=== PATIENT | female | born 1950 | race Caucasian/White ===

== ENCOUNTER 2019-12-24 10:09 | Emergency (ER) | payer MEDICARE, OTHER ==
[2019-12-24 10:40] LABS: Bilirubin Negative (Negative); Blood, Urine Trace (Negative); Clarity Clear (Clear); Glucose, Urine (Dipstick) Negative (Negative); Ketone, Urine Negative (Negative); Leukocyte Negative (Negative); Nitrite Negative (Negative); Protein, Urine (Dipstick) Negative (Neg-Trace); Urobilinogen 0.2 mg/dL (Less than 2); pH, Urine 7.5 (5.0-9.0)
[2019-12-24 10:46] LABS: RBC/HPF 0-3 HPF (0-3)
[2019-12-24 10:47] LABS: Bacteria/HPF Rare-Few HPF (None Seen); Squamous Epithelial 0-3 HPF (0-3); WBC/HPF 0-3 HPF (0-3)
[2019-12-24] MEDS ORDERED: Ketorolac Tromethamine 60 MG/2 ML VIAL ONE (11:30)
--- NOTE | 2019-12-24 13:58 | CT ---
CT OF THE ABDOMEN AND PELVIS WITHOUT IV CONTRAST: INDICATION: A 68-year-old female with left-sided abdominal pain ongoing for the last 2 weeks with patient having the last bowel movement on Monday. COMPARISON: None. FINDINGS: The lung bases are clear. No focal hepatic lesion is grossly evident. The gallbladder, pancreas, adrenal glands, and unopacified kidneys are within normal limits. No rishabh l or ureteral calculus is evident. No hydronephrosis is evident. The spleen is within normal limits. There are mild vascular calcifications involving the abdominal aorta. No free fluid or enlarged lymp h nodes are evident. There is a moderate amount of retained stool within the ascending colon, transverse colon, and spleni c flexure. The small bowel has a normal caliber. There is a normal retrocecal appendix. The bladder, rectum, and perirectal soft tissues are unremarkable-appearing. Reproductive structures are not seen and may be surgically absent. There is diffuse osteopenia. No definite acute osseous abnormality is evident. IMPRESSION: 1. Moderate amount of retained stool within the colon. Recommend correlation for constipation. 2. No renal or ureteral calculus. POS:
== END 2019-12-24 11:44 | disposition home or self-care (01) ==
LOC: BURERS 10:09
DX: M54.5 Low back pain (principal); K59.00 Constipation, unspecified
CPT/HCPCS: 74176; 81003; 81015; 87086; 96372; J1885